=== PATIENT | female | born 2005 | race Caucasian/White ===

== ENCOUNTER 2025-03-20 14:31 | Outpatient (AMB) | payer MEDICAID, SELFPAY ==
--- NOTE | 2025-03-20 14:37 | OBCLNT_ITS ---
Vital Signs 03/20/25 14:42 Height 1.6 m Height Method Stated Weight 115.836 kg Weight Measurement Method Standing Scale BMI 45.2 BP 126/84 Blood Pressure Source Automatic Cuff Blood Pressure Location Left Upper Arm Position Sitting Respiration 18 Pulse 96 Pulse Source Monitor Temp 97.8 F Temp Source Oral Pulse Oximetry (%) 95 Oxygen Delivery Method Room Air Allergies/Home Meds Allergies & Medications Allergies No Known Allergies Allergy (Verified 03/20/25 14:46) Medication Reconciliation No Known Home Medications 03/20/25 [History Confirmed 03/20/25] Intake Visit Data Collection New Patient or Established: Established Patient (seen at [facility] within 3 years) Reason for Visit:: INITIAL CARE Seen by Clinical Staff ONLY (RN/MA): No Permastone Installer Required: No Do You Feel Safe at Home: Yes Authorities Contacted: N/A PCP or OBGYN visit in last 3 months: Yes Hx Now: Yes Are you currently on any form of Control: No Last menstrual period: 12/09/24 Pain Present Currently: No Pain Scale Used: Tafoya-Adam/Numerical Smoking Status Smoking Status: Former smoker Immunizations Flu Vaccine in the Last 12 Months: Yes Flu Vaccine Exclusion Criteria: Already Received Questionnaires Covid-19 Vaccine Questionnaire Has patient been vacinated for Covid-19 Have you been vacinated for Covid-19: No PHQ-9 PHQ-2 Over the last 2 weeks, how often have you been bothered by any of the following problems? 1. Little interest or pleasure in doing things: not at all 2. Feeling down, depressed, or hopeless: not at all Total score: 0 PHQ-9 3. Trouble falling or staying asleep, or sleeping too much: Not at all 4. Feeling tired or having little energy: Not at all 5. Poor appetite or overeating: Not at all 6. Feeling bad about yourself - or that you are a failure or have let yourself or your family down: Not at all 7. Trouble concentrating on things, such as reading the newspaper or watching television: Not at all 8. Moving or speaking so slowly that other people could have noticed? - Or the opposite - being so fidgety or restless that you have been moving around a lot more than usual: not at all 9. Thoughts that you would be better off or of hurting yourself in some way: Not at all Total score: 0 Source: Developed by Drs. Chuckie Condon, Mikayla Conteh, Orestes De Santiago and colleagues, with an educational noman from [employer]. Depression screen completed yes Social History Living Situation History Lives With: Family Housing: House Tobacco History Smoking Status: Former smoker Second Hand Smoke Exposure: No Alcohol History Alcohol Intake: Never Domestic Abuse History Do You Feel Safe at Home: Yes History of Present Illness HPI Narrative 19-year-old 1 para 0 for OBI. Last period December 09, 2024. Estimated due date September 15, 2024. Patient had her verification done at [facility]. Reports regular menses. Patient denies social habits. Denies surgery. Denies chronic illness. She denies any signs or symptoms of miscarriage. 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 This is a 19-year-old 1 para 0 for OB hide. Last period December 09, 2024. Estimated due date September 15, 2024. She has no complaints of SAB. And no 1st and 2nd trimester discomforts. Her and partner are happy about the Schedule ultraso und to evaluate dating at [facility]. Patient has trouble getting to [place] with transportation. OB panel today with a hemoglobin A1c. NIPT and carrier screen were also done. Discussed SAB precautions. Continue prenatals. We discussed weight gain and diet. Return in 4 weeks OB check Menstrual History Menstrual reliability: definite Flow: normal Menstrual regularity: regular Monthly: Yes Age at menarche: 10 On control pills at conception: No Associated symptoms (LMP): Reports nausea, vomiting, fatigue and breast tenderness OB History : 1 Infection History & Risk Evaluation History of STDs: none Genetic Screening & History Genetic Screening/Teratology Counseling - Includes patient, baby's father, or anyone in either family with: 1. Patient's age 35 years or older as of estimated date of delivery: No 2. Thalassemia (Indonesian, Kinyarwanda, Mediterranean, or Background); MCV less than 80: No 3. Neural Tube Defect (Meningomyelocele, Spina Bifida, or Anencephaly): No 4. Congenital Heart Defect: No 5. Down Syndrome: No 6. Zachary-Sachs (Ashkenazi Hoahaoism, Cajun, Scottish [place]): No 7. Juliocesar Disease (Ashkenazi Hoahaoism): No 8. Familial Dysautonomia (Ashkenazi Hoahaoism): No 9. Sickle Cell Disease or Trait (): No 10. Hemophilia or other blood disorders: No 11. Muscular Dystrophy: No 12. Cystic Fibrosis: No 13. Camden's Chorea: No 14. Mental Retardation/Autism: No 15. Other inherited genetic or chromosomal disorder: No 16. Maternal Metabolic Disorder (EG,TYPE 1 Diabetes, PKU): No 17. Patient or baby's father had a child with defects not listed above: No 18. Recurrent loss or a stillbirth: No 19. Medications (including supplements, vitamins, herbs or otc drugs)/illicit/recreational drugs/alcohol since last menstrual period: No 20. Any other: No Infection History 1. Live with someone with TB or exposed to TB: No 2. Rash or viral illness since last menstrual period: No 3. Hepatitis B,C: No Other (see comments) Source: [employer] Review of Systems Constitutional Constitutional: Reports fatigue Gastrointestinal Gastrointestinal: Reports nausea and Reports vomiting Endocrine Endocrine: Reports fatigue Office Procedures OBC Clinic LOC & Office Proc's Nursing/Assessment Patient Status: Established Patient OB Clinic Nursing Assessment: Medication Reconciliation, Update PMH in EMR and Vital Signs OB Clinic Coordination of Care: Complex Care and Chronic Disease 1-5, Consent,records obtained, informed consent, Education Simp Pt/Fam, 1 Ins Authorization, Lab and Imaging orders, Results/Orders obtained and Staff clarify orders Special Needs: Heart tones Established Patient Charge Established Patient Point Assignment: 150 Established Patient Point Charge: EP Level 4 (120-155) Assessment & Plan Diagnosis / Problem List (1) Obesity affecting in second trimester: Status: Acute (2) Encounter for supervision of high risk in second trimester, antepartum: Status: Acute Plan OB panel today. With A1c and NIPT carrier screen. Schedule ultrasound for dating at [facility]. Discussed diet and weight gain. Patient encouraged to walk and be active. Continue prenatals. Return in 4 weeks OB check Additional Plan Follow Up: 4 Weeks (obc)
[2025-03-20 14:42] VITALS: BP 126/84; PULSE 96; RESP 18; TEMP 36.6; O2SAT 95; BMI 45.2
== END 2025-03-20 15:23 | disposition home or self-care (01) ==
PROVIDERS: PCP Pediatrics; Referring Provider Pediatrics; Supervising Provider Advanced Practice Midwife; Visit Provider Advanced Practice Midwife
DX: O09.892 Supervision of other high risk pregnancies, second trimester (principal); O99.212 Obesity complicating pregnancy, second trimester; Z3A.14 14 weeks gestation of pregnancy; Z87.891 Personal history of nicotine dependence
CPT/HCPCS: 99214; G0463

== ENCOUNTER 2025-04-20 14:22 | Outpatient (AMB) | payer MEDICAID, SELFPAY ==
[2025-04-20 14:33] VITALS: BP 126/83; PULSE 76; RESP 14; TEMP 36.6; O2SAT 98; BMI 45.9
--- NOTE | 2025-04-20 14:33 | AMB.OBPNC ---
Vital Signs 04/20/25 14:33 Height 1.6 m Height Method Stated Weight 117.651 kg Weight Measurement Method Standing Scale BMI 45.9 BP 126/83 Blood Pressure Source Automatic Cuff Blood Pressure Location Left Upper Arm Position Sitting Respiration 14 Pulse 76 Pulse Source Monitor Temp 97.8 F Temp Source Oral Pulse Oximetry (%) 98 Oxygen Delivery Method Room Air Allergies/Home Meds Allergies & Medications Allergies No Known Allergies Allergy (Verified 04/20/25 14:49) Medication Reconciliation No Known Home Medications 03/20/25 [History Confirmed 04/20/25] Immunizations Immunizations Flu Vaccine in the Last 12 Months: Yes Date of most recent flu vaccination: 04/20/25 Flu Vaccine Exclusion Criteria: Already Received Care OB Visit Log OB Flowsheet Initial Weight: Not Recorded Date <del>?</del> EGA Weight BP Alb Glu CTX Pres Fundal ht FHR Mov Dilation Station Effacement Hx Notes Visit Note 03/20/25 <del>?</del> 16w 4d 115.836 kg 126/84 absent unknown 14 145 active Reports light movement. This is a 19-year-old 1 para 0 for OB hide. Last period December 09, 2024. Estimated due date September 15, 2024. She has no complaints of SAB. And no 1st and 2nd trimester discomforts. Her and partner are happy about the Schedule ultrasound to evaluate dating at [facility]. Patient has trouble getting to [place] with transportation. OB panel today with a hemoglobin A1c. NIPT and carrier screen were also done. Discussed SAB precautions. Continue prenatals. We discussed weight gain and diet. Return in 4 weeks OB check 04/20/25 <del>?</del> 21w 0d 117.651 kg 126/83 absent unknown 21 145 active No OB complaints. Reports good movement. Denies leaking, bleeding, contractions. Patient is unable to get to [facility] because of transportation Schedule follow-up ultrasound at 28 weeks. Discussed labor precautions. Kick count. Patient has wrong dates her EDC was current corrected to September 15, 2024 and that is based on a 19-week ultrasound April 07, 2025. Return in 4 weeks OB check PROSPER Calculator Estimated Delivery Date Method Current WG Current Estimate 08/31/25 Ultrasound #1 21w 0d Other Estimates 09/15/25 LMP (Certain) 18w 6d 08/31/25 Manual 21w 0d fianl prosper: 08/31/25 Notes Visit Date: 04/20/25 Last Updated by: Shantal Fernandez CNM sono: 04/07: 19 week, EFW: 41%, OB sono: O+,abs-, rpr;;nr, rub imm, HBSAG-,hiv-,HC-, GC/CT-, . NIPT-/male, CF-,SMA-, A1c: 4.9 Visit Date: 03/20/25 Last Updated by: Shantal Fernandez CNM 19 yo . LMP 12/09/24 . EDC: 09/15/24 Office Procedures OBC Clinic LOC & Office Proc's Nursing/Assessment Patient Status: Established Patient OB Clinic Nursing Assessment: Medication Reconciliation, Update PMH in EMR and Vital Signs OB Clinic Coordination of Care: Complex Care and Chronic Disease 1-5, Consent,records obtained, informed consent, Education Simp Pt/Fam, 1 Ins Authorization, Lab and Imaging orders, Results/Orders obtained and Staff clarify orders Special Needs: Heart tones Established Patient Charge Established Patient Point Assignment: 150 Established Patient Point Charge: EP Level 4 (120-155) Injection/Vaccine Admin SQ Im Injection: Yes Immunizations flu vac ts (6mos up)-PF 45 mcg(15mcg x3)/0.5 mL IM syringe Performing Provider: Shantal Fernandez CNM Performing Location: [facility] [facility]ACHINE OPERATOR Clinic Administered by: Nati Maxwell MA on 04/20/25 14:53 Dose Route Admin Location Dispensed Lot Number Expiration Date Package [facility] [employer] Manager 0.5 mL IM Right Deltoid 0.5 mL [id number] 11/17/25 61833-328-59 [id number] [employer] VIS Given Date VIS Provided VIS Publication Date 04/20/25 Single Vaccine 24 Eligibility Eligibility Date Funding Source Public Non-[facility] Assessment & Plan Diagnosis / Problem List (1) Encounter for supervision of high risk in second trimester, antepartum: Status: Acute Plan Discussed dates. Corrected EDC to August 31, 2025. Discussed labor precautions. Discussed OB panel and labs. Return in 4 weeks OB check. Follow-up ultrasound at 28 weeks Additional Plan Follow Up: 4 Weeks (obc)
== END 2025-04-20 15:25 | disposition home or self-care (01) ==
LOC: HODSOBC 14:22
PROVIDERS: Supervising Provider Advanced Practice Midwife; Visit Provider Advanced Practice Midwife
DX: O09.92 Supervision of high risk pregnancy, unspecified, second trimester (principal); Z3A.21 21 weeks gestation of pregnancy; Z23 Encounter for immunization
CPT/HCPCS: 90471; 90686; 96372; 99214; G0463; J9060

== ENCOUNTER 2025-05-19 14:52 | Outpatient (AMB) | payer MEDICAID, SELFPAY ==
[2025-05-19 15:15] VITALS: BP 126/85; PULSE 77; RESP 18; TEMP 36.6; O2SAT 98; BMI 46.5
--- NOTE | 2025-05-19 15:15 | OBCLNT_ITS ---
Vital Signs 05/19/25 15:15 Height 1.6 m Height Method Stated Weight 119.011 kg Weight Measurement Method Standing Scale BMI 46.5 BP 126/85 H Blood Pressure Source Automatic Cuff Blood Pressure Location Right Upper Arm Position Sitting Respiration 18 Pulse 77 Pulse Source Monitor Temp 97.8 F Temp Source Temporal Artery Scan Pulse Oximetry (%) 98 Oxygen Delivery Method Room Air Allergies/Home Meds Allergies & Medications Allergies No Known Allergies Allergy (Verified 05/19/25 15:17) Medication Reconciliation No Known Home Medications 03/20/25 [History Confirmed 05/19/25] Immunizations Immunizations Flu Vaccine in the Last 12 Months: Yes Flu Vaccine Exclusion Criteria: Already Received Care OB Visit Log OB Flowsheet Initial Weight: Not Recorded Date -?-?-?-?-?-?-?-?-?-?-?-?- EGA Weight BP Alb Glu CTX Pres Fundal ht FHR Mov Dilation Station Effacement Hx Notes Visit Note 03/20/25 -?-?-?-?-?-?-?-?-?-?-?-?- 16w 4d 115.836 kg 126/84 absent unknown 14 145 active Reports light movement. This is a 19-year-old 1 para 0 for OB hide. Last period December 09, 2024. Estimated due date September 15, 2024. She has no complaints of SAB. And no 1st and 2nd trimester discomforts. Her and partner are happy about the Schedule ultraso und to evaluate dating at [facility]. Patient has trouble getting to [place] with transportation. OB panel today with a hemoglobin A1c. NIPT and carrier screen were also done. Discussed SAB precautions. Continue prenatals. We discussed weight gain and diet. Return in 4 weeks OB check 04/20/25 -?-?-?-?-?-?-?-?-?-?-?-?- 21w 0d 117.651 kg 126/83 absent unknown 21 145 active No OB complaints. Reports good movement. Denies leaking, bleeding, contractions. Patient is unable to get to [facility] because of transportation Schedule follow-up ultrasound at 28 weeks. Discussed labor precautions. Kick count. Patient has wrong dates her EDC was current corrected to September 15, 2024 and that is based on a 19-week ultrasound April 07, 2025. Return in 4 weeks OB check 05/19/25 -?-?-?-?-?-?-?-?-?-?-?-?- 25w 1d 119.011 kg 126/85 absent unknown 25 145 active Reports good movement. Denies leaking, bleeding, contractions Schedule ultrasound for growth at [facility] next visit. Discussed labor precautions. Discussed diet and weight gain. Third trimester labs today PROSPER Calculator Estimated Delivery Date Method Current WG Current Estimate 08/31/25 Ultrasound #1 25w 1d Other Estimates 09/15/25 LMP (Certain) 23w 0d 08/31/25 Manual 25w 1d fianl prosper: 08/31 Notes Visit Date: 04/20/25 Last Updated by: Shantal Fernandez CNM sono: 04/07: 19 week, EFW: 41%, OB sono: O+,abs-, rpr;;nr, rub imm, HBSAG-,hiv-,HC-, GC/CT-, . NIPT-/male, CF-,SMA-, A1c: 4.9 Visit Date: 03/20/25 Last Updated by: Shantal Fernandez CNM 19 yo . LMP 12/09/24 . EDC: 09/15/24 Office Procedures OBC Clinic LOC & Office Proc's Nursing/Assessment Patient Status: Established Patient OB Clinic Nursing Assessment: Medication Reconciliation, Update PMH in EMR and Vital Signs OB Clinic Coordination of Care: Complex Care and Chronic Disease 1-5, Education Complex Pt/Fam, Consent,records obtained, informed consent, Lab and Imaging orders, Results/Orders obtained and Staff clarify orders Special Needs: Heart tones Established Patient Charge Established Patient Point Assignment: 140 Established Patient Point Charge: EP Level 4 (120-155) Assessment & Plan Diagnosis / Problem List (1) Encounter for supervision of high risk in second trimester, antepartum: Status: Acute Plan Third trimester labs. Schedule ultrasound for growth at [facility] next visit. Discussed labor precautions. We discussed diet and weight gain return in 2 weeks OB check Additional Plan Follow Up: 3 Weeks (obc)
== END 2025-05-19 15:42 | disposition home or self-care (01) ==
LOC: HODSOBC 14:52
PROVIDERS: Supervising Provider Advanced Practice Midwife; Visit Provider Advanced Practice Midwife
DX: O09.92 Supervision of high risk pregnancy, unspecified, second trimester (principal); Z3A.25 25 weeks gestation of pregnancy
CPT/HCPCS: 99214; G0463